=== PATIENT | male | born 1990 | race Hispanic/Latino ===

== ENCOUNTER 2021-10-20 03:42 | Emergency (ER) | payer SELFPAY ==
[2021-10-20] MEDS ORDERED: Ketorolac Tromethamine 30 MG/ML VIAL ONE (04:00)
[2021-10-20 04:22] LABS: Bacteria/HPF None Seen HPF (None Seen); Bilirubin Negative (Negative); Blood, Urine 2+ (Negative); Clarity Clear (Clear); Glucose, Urine (Dipstick) Normal (Negative); Ketone, Urine Negative (Negative); Leukocyte Negative Leu/uL (Negative); Nitrite Negative (Negative); Protein, Urine (Dipstick) Negative (Neg-Trace); RBC/HPF 21-50 HPF (0-3); Specific Gravity, Urine 1.024 (1.002-1.036); Squamous Epithelial None Seen HPF (0-3); Urobilinogen Normal mg/dL (Less than 2); WBC/HPF 0-3 HPF (0-3); pH, Urine 6.5 (5.0-9.0)
== END 2021-10-20 04:57 | disposition home or self-care (01) ==
LOC: ERS 03:42
DX: N13.2 Hydronephrosis with renal and ureteral calculous obstruction (principal); F17.210 Nicotine dependence, cigarettes, uncomplicated
CPT/HCPCS: 74176; 81003; 81015; 87086; 96372; J1885

== ENCOUNTER 2021-10-21 23:40 | Emergency (ER) | payer BC, SELFPAY ==
[2021-10-22] MEDS ORDERED: Morphine 4 MG/ML VIAL ONE (01:25)
== END 2021-10-22 03:45 | disposition home or self-care (01) ==
LOC: ERS 23:40
DX: N20.0 Calculus of kidney (principal)
CPT/HCPCS: 96372; 99283; J2270